=== PATIENT | female | born 1990 | race Caucasian/White ===

== ENCOUNTER 2025-07-06 19:40 | Outpatient (CLI) | payer OTHER, SELFPAY ==
[2025-07-06 19:56] VITALS: BMI 31.1
[2025-07-06 20:12] VITALS: BP 119/73; PULSE 61; TEMP 36.8
[2025-07-06 20:13] VITALS: PULSE 66; O2SAT 96
[2025-07-06 20:14] VITALS: RESP 12
--- NOTE | 2025-07-07 08:11 | OB.TRI.NOTE ---
HPI - General General Date of Admission: 07/06/25 Date of Service: 07/06/25 HPI Narrative KALIA KING, is a 35 F who presents complaining of decreased movement and mild abdominal cramping. PFSH PFSH Home Medications ?Medication ?Instructions ?Recorded ?Last Taken ?Type aspirin 81 mg tablet 81 mg PO QHS 07/06/25 07/05/25 21:00 History cholecalciferol (vitamin D3) 50 50 mcg PO DAILY 07/06/25 07/06/25 08:00 History mcg (2,000 unit) tablet (Thera-D) vit no.95-ferrous 1 tab PO DAILY 07/06/25 07/06/25 08:00 History fumarate 28 mg-folic acid 800 mcg tablet () Allergy/AdvReac Type Severity Reaction Status Date / Time Penicillins Allergy Unknown PT UNSURE Verified 07/06/25 20:06 OF REACTION NST FHR Rate Baby A Baseline: 130 Variability:: Moderate Accelerations:: 15 x 15 NST Reactive:: Yes Uterine Activity:: no regular ctxs Assessment & Plan (1) Decreased movements in third trimester:
== END 2025-07-06 20:35 | disposition home or self-care (01) ==
LOC: WPOUT 19:54 → WP 19:55
PROVIDERS: Referring Provider Obstetrics & Gynecology; Visit Provider Obstetrics & Gynecology
DX: O36.8130 Decreased fetal movements, third trimester, not applicable or unspecified (principal); Z3A.00 Weeks of gestation of pregnancy not specified
CPT/HCPCS: 59025; 59050; 99221; G0378